=== PATIENT | male | born 1970 | race Two or more races ===

== ENCOUNTER 2023-01-19 20:23 | Emergency (ER) | payer OTHER ==
[~2023-01-19] VITALS: Ht 170.2 cm; Wt 74.8 kg
== END 2023-01-20 | disposition home or self-care (01) ==
LOC: ER 20:23
DX: K29.70 Gastritis, unspecified, without bleeding (principal)

== ENCOUNTER 2023-10-02 08:49 | Outpatient (CLI) | payer OTHER | END 2023-10-02 09:03 | disposition home or self-care (01) | LOC: SONOGRAMA 08:49 | PROVIDERS: ATTEND Internal Medicine Gastroenterology | DX: K80.20 Calculus of gallbladder without cholecystitis without obstruction (principal) ==